=== PATIENT | male | born 1975 | race Two or more races ===

== ENCOUNTER 2019-05-12 19:48 | Inpatient (IN) | payer OTHER ==
[~2019-05-12] VITALS: Ht 177.8 cm; Wt 71.6 kg
--- NOTE | 2019-05-12 20:03 | NUR ---
BIB CARE FLIGHT FROM [facility]. PT C/O 02/15 STERNAL CP STARTING AT 1814. [employer] 324 ASA, 3 SPRAY NITRO. PIV 18G LAC. 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 PT STATES HE'S HAD THIS PAIN 2 WEEKS AGO THAT WENT AWAY. PT CONNECTED TO MONITORING. 2 GUARDS AT BEDSIDE. MD AT BEDSIDE, AWAITING ORDERS AT THIS TIME.
[2019-05-12] MEDS ORDERED: MORPHINE SULFATE 4 MG/ML, 1ML ONE (20:21)
[2019-05-12] MEDS ORDERED: ONDANSETRON 2MG/ML, 2ML ONE (20:21)
--- NOTE | 2019-05-12 20:25 | NUR ---
MEDS ADMIN PER JUL.
[2019-05-12] MEDS ORDERED: MORPHINE SULFATE 4 MG/ML, 1ML IVPush PRN (20:30)
[2019-05-12] MEDS ORDERED: PLEASE ENTER HEIGHT AND WEIGHT MC SCH ×2 (20:30→22:00)
[2019-05-12] MEDS ORDERED: ONDANSETRON 2MG/ML, 2ML IVPush ONE (20:30)
[2019-05-12] MEDS ORDERED: PLEASE ENTER ALLERGIES MC SCH (20:30)
[2019-05-12 20:37] LABS: BASOPHILS # (AUTO) 0.05 x10^3/uL (0-0.1); BASOPHILS % (AUTO) 1 % (0-1); EOSINOPHILS # (AUTO) 0.12 x10^3/uL (0-0.4); EOSINOPHILS % (AUTO) 2 % (1-7); LYMPHOCYTES # (AUTO) 2.16 x10^3/uL (1-3.4); LYMPHOCYTES % (AUTO) 27 % (22-44); MD NO; MEAN CORPUSCULAR HEMOGLOBIN 32.5 pg (27.5-34.5); MEAN CORPUSCULAR HGB CONC 33.4 g/dL (33.2-36.2); MEAN CORPUSCULAR VOLUME 97.4 fL (81-97); MEAN PLATELET VOLUME 9.2 fL (7.4-10.4); MONOCYTES # (AUTO) 0.47 x10^3/uL (0.2-0.8); MONOCYTES % (AUTO) 6 % (2-9); NEUTROPHILS # (AUTO) 5.13 x10^3/uL (1.8-6.8); NEUTROPHILS % (AUTO) 65 % (42-75); PLATELET COUNT 323 x10^3/uL (130-400); RED BLOOD COUNT 4.69 x10^6/uL (4.38-5.82); RED CELL DISTRIBUTION WIDTH 13.2 % (9.4-14.8)
[2019-05-12 20:49] LABS: ALANINE AMINOTRANSFERASE 20 U/L (12-78); ALBUMIN 3.6 g/dL (3.4-5.0); ANION GAP 4 mmol/L (5-15); CHLORIDE 107 mmol/L (98-107); CREATININE 0.97 mg/dL (0.7-1.3)
[2019-05-12 20:53] LABS: ALKALINE PHOSPHATASE 84 U/L (45-117); BILIRUBIN,TOTAL 1.3 mg/dL (0.2-1.0); TOTAL PROTEIN 7.2 g/dL (6.4-8.2); TROPONIN I < 0.015 ng/mL (0.000-0.045)
--- NOTE | 2019-05-12 20:56 | NUR ---
ALL RESULTS ARE BACK AT THIS TIME. CHART UP FOR RECHECK.
[2019-05-12] MEDS ORDERED: ACETAMINOPHEN 500 MG TABLET ONE (21:09)
--- NOTE | 2019-05-12 21:15 | NUR ---
MEDS ADMIN PER JUL. IVF RUNNING
[2019-05-12] MEDS ORDERED: ACETAMINOPHEN 500 MG TABLET PO ONE (21:30)
[2019-05-12] MEDS ORDERED: SODIUM CHLORIDE 0.9% 1,000ML IVBOLUS ONE (21:30)
--- NOTE | 2019-05-12 21:54 | NUR ---
REPORT GIVEN TO RECEIVING RN.
[2019-05-12] MEDS ORDERED: BISACODYL 10 MG SUPP PR PRN (22:30)
[2019-05-12 22:45] VITALS: BP 105/70
[2019-05-12] MEDS: SODIUM CHLORIDE 0.9% 1,000 ML IV SCH (23:06)
[2019-05-12] MEDS ORDERED: BUSP15TA PO (23:19)
[2019-05-12] MEDS ORDERED: ACET325C6 PO (23:19)
[2019-05-12] MEDS ORDERED: MELO15TA6 PO (23:19)
[2019-05-12] MEDS ORDERED: DULO60CA7 PO (23:19)
[2019-05-13 02:45] VITALS: BP 107/69
[2019-05-13 03:05] LABS: BASOPHILS # (AUTO) 0.07 x10^3/uL (0-0.1); BASOPHILS % (AUTO) 1 % (0-1); EOSINOPHILS # (AUTO) 0.19 x10^3/uL (0-0.4); EOSINOPHILS % (AUTO) 3 % (1-7); LYMPHOCYTES # (AUTO) 2.77 x10^3/uL (1-3.4); LYMPHOCYTES % (AUTO) 43 % (22-44); MD NO; MEAN CORPUSCULAR HEMOGLOBIN 31.9 pg (27.5-34.5); MEAN CORPUSCULAR VOLUME 96.6 fL (81-97); MEAN PLATELET VOLUME 9.4 fL (7.4-10.4); MONOCYTES # (AUTO) 0.38 x10^3/uL (0.2-0.8); MONOCYTES % (AUTO) 6 % (2-9); NEUTROPHILS % (AUTO) 48 % (42-75); PLATELET COUNT 278 x10^3/uL (130-400); RED BLOOD COUNT 4.43 x10^6/uL (4.38-5.82); RED CELL DISTRIBUTION WIDTH 12.8 % (9.4-14.8)
[2019-05-13 03:15] LABS: ANION GAP 7 mmol/L (5-15); CALCIUM 8.2 mg/dL (8.5-10.1); CHLORIDE 112 mmol/L (98-107)
[2019-05-13 03:21] LABS: CHOLESTEROL, TOTAL 174 mg/dL (140-239); CREATININE 0.74 mg/dL (0.7-1.3); HDL CHOL % 25 % (26-37); HDL CHOLESTEROL (DIRECT) 44 mg/dL (40-60); LDL CHOLESTEROL,CALCULATED 119 mg/dL (54-169); LDL/HDL RATIO 2.7 (0.5-3.0); TRIGLYCERIDES 57 mg/dL (50-200); TROPONIN I < 0.015 ng/mL (0.000-0.045); VLDL CHOLESTEROL 11 mg/dL (0-25)
[2019-05-13 07:44] VITALS: BP 116/76
[2019-05-13] MEDS: SODIUM CHLORIDE 0.9% 1,000 ML IV SCH ×2 (08:11→15:57)
[2019-05-13 08:51] LABS: TROPONIN I < 0.015 ng/mL (0.000-0.045)
[2019-05-13] MEDS ORDERED: REGADENOSON 0.4 MG/5 ML SYRINGE ONE (08:52)
[2019-05-13 13:56] VITALS: BP 112/67
[2019-05-13] MEDS ORDERED: SIMV40TA PO (15:31)
[2019-05-13] MEDS ORDERED: OMEP-110 PO (15:38)
== END 2019-05-13 22:55 | DRG 392 ==
LOC: ED 21:28 → EDIP 22:17 → 5SO 22:22
PROVIDERS: ADMIT Family Medicine; ATTEND Internal Medicine
DX: K21.9 Gastro-esophageal reflux disease without esophagitis (principal); F32.9 Major depressive disorder, single episode, unspecified; M19.90 Unspecified osteoarthritis, unspecified site; E11.42 Type 2 diabetes mellitus with diabetic polyneuropathy; Z83.3 Family history of diabetes mellitus; Z87.891 Personal history of nicotine dependence; Z79.84 Long term (current) use of oral hypoglycemic drugs; Z79.899 Other long term (current) drug therapy
CPT/HCPCS: 36415; 71045; 78452; 80048; 80053; 80061; 83735; 83880; 84484; 85025; 93005; 93017; 93306; 96374; 96375; G0378; J2405; J2785; A9502; J2270; J7030